=== PATIENT | female | born 1985 | race African-American/Black ===

== ENCOUNTER 2025-05-25 09:31 | Emergency (ER) | payer SELFPAY ==
[~2025-05-25] VITALS: Ht 160 cm; Wt 60.0 kg
[2025-05-25 09:33] VITALS: PULSE 85; RESP 14; O2SAT 98
[2025-05-25 09:35] VITALS: BP 132/77; TEMP 37.1; O2SAT 100
[2025-05-25 10:29] LABS: BASOPHILS % 1.0 % (0.0-2.0); EOSINOPHILS % 0.5 % (0.0-5.0); HEMATOCRIT. 35.5 % (36.0-48.0); HEMOGLOBIN. 11.7 g/dL (12.0-16.0); LYMPHOCYTES % 22.8 % (20.0-50.0); MEAN PLATELET VOLUME 7.0 fl (7.4-10.4); MONOCYTES % 8.4 % (2.0-8.0); NEUTROPHILS % 67.3 % (40.0-76.0); PLATELET 373 x1000/uL (130-400); RED BLOOD CELL COUNT 4.03 mill/uL (4.2-5.4); RED CELL DISTRIBUTION WIDTH 14.7 % (11.6-14.6)
[2025-05-25 10:42] LABS: CREATININE 0.6 mg/dL (0.6-1.0)
[2025-05-25 10:43] LABS: UREA NITROGEN BLOOD 11 mg/dL (9-23)
[2025-05-25 10:44] LABS: TROPONIN I HIGH SENSITIVITY < 4 ng/L (3.0-34)
[2025-05-25 10:49] LABS: HCG SCREEN NEGATIVE
[2025-05-25] MEDS: IBUPROFEN 600MG TABLET PO ONE (10:49)
== END 2025-05-25 12:03 | disposition home or self-care (01) ==
LOC: ER 09:31
DX: R07.89 Other chest pain (principal); R06.02 Shortness of breath
CPT/HCPCS: 36415; 71045; 80048; 84484; 84703; 85025; 93005; 99285